=== PATIENT | male | born 1990 | race Caucasian/White ===

== ENCOUNTER 2019-03-09 11:33 | Outpatient (CLI) | payer OTHER ==
[2019-03-09 12:03] LABS: BASOPHILS % (AUTO) 0.6 % (0.0-2.0); EOSINOPHILS # (AUTO) 0.2 K/uL (0.0-0.4); EOSINOPHILS % (AUTO) 2.4 % (0.0-4.0); HEMATOCRIT 48.5 % (36-48); HEMOGLOBIN 16.6 g/dL (12.0-16.0); LYMPHOCYTES # (AUTO) 1.3 K/uL (1.0-5.5); LYMPHOCYTES % (AUTO) 21.1 % (20.5-51.5); MEAN CORPUSCULAR HEMOGLOBIN 32 pg (27-31); MEAN CORPUSCULAR HGB CONC 34 % (32-36); MEAN CORPUSCULAR VOLUME 94 fL (79.0-98.0); MONOCYTES # (AUTO) 0.6 K/uL (0.0-1.0); MONOCYTES % (AUTO) 9.3 % (1.7-9.3); NEUTROPHILS # (AUTO) 4.2 K/uL (1.8-7.7); NEUTROPHILS % (AUTO) 66.6 % (40.0-70.0); PLATELET COUNT (AUTO) 270 K/uL (130-430); RED BLOOD CELL COUNT(AUTO) 5.15 MIL/uL (4.2-6.2); WHITE BLOOD COUNT (AUTO) 6.4 K/uL (4.8-10.8)
[2019-03-09 12:18] LABS: ALBUMIN 4.3 g/dL (3.4-4.8); CALCIUM 9.3 mg/dL (8.4-11.0); CREATININE 1.05 mg/dL (0.55-1.30); POTASSIUM 4.1 mmol/L (3.5-5.1)
== END 2019-03-09 20:40 | disposition home or self-care (01) ==
LOC: SLB 11:33 → EDSEX 11:33 → SLB 20:40
PROVIDERS: ATTEND General Practice
DX: G54.0 Brachial plexus disorders (principal); M62.838 Other muscle spasm
CPT/HCPCS: 36415; 80053; 80061; 85025

== ENCOUNTER → 2019-05-10 | Outpatient (CLI) | payer OTHER ==
[2019-05-10 11:26] LABS: BASOPHILS # (AUTO) 0.1 K/uL (0.0-0.2); BASOPHILS % (AUTO) 1.5 % (0.0-2.0); EOSINOPHILS # (AUTO) 0.3 K/uL (0.0-0.4); EOSINOPHILS % (AUTO) 4.1 % (0.0-4.0); HEMATOCRIT 49.3 % (36-54); LYMPHOCYTES # (AUTO) 2.3 K/uL (1.0-5.5); LYMPHOCYTES % (AUTO) 33.3 % (20.5-51.5); MEAN CORPUSCULAR HEMOGLOBIN 32 pg (27-31); MEAN CORPUSCULAR HGB CONC 35 % (32-36); MEAN CORPUSCULAR VOLUME 94 fL (79.0-98.0); MONOCYTES # (AUTO) 0.7 K/uL (0.0-1.0); MONOCYTES % (AUTO) 10.5 % (1.7-9.3); NEUTROPHILS # (AUTO) 3.5 K/uL (1.8-7.7); NEUTROPHILS % (AUTO) 50.6 % (40.0-70.0); PLATELET COUNT (AUTO) 251 K/uL (130-430); RED BLOOD CELL COUNT(AUTO) 5.26 MIL/uL (4.2-6.2); RED CELL DISTRIBUTION WIDTH 13.2 % (9.0-15.0); WHITE BLOOD COUNT (AUTO) 6.8 K/uL (4.8-10.8)
[2019-05-10 11:40] LABS: ALBUMIN 4.2 g/dL (3.4-4.8); CALCIUM 8.9 mg/dL (8.4-11.0); CREATININE 1.04 mg/dL (0.55-1.30); POTASSIUM 3.8 mmol/L (3.5-5.1); TOTAL BILIRUBIN 0.8 mg/dL (0.0-1.0)
== END | disposition home or self-care (01) ==
LOC: SLB 10:48
PROVIDERS: ATTEND General Practice
DX: G54.0 Brachial plexus disorders (principal); M62.838 Other muscle spasm
CPT/HCPCS: 36415; 80053; 80061; 85025

== ENCOUNTER 2019-06-23 11:25 | Outpatient (CLI) | payer OTHER ==
[2019-06-23 13:35] LABS: ALBUMIN 4.3 g/dL (3.4-4.8); BILIRUBIN,DIRECT 0.1 mg/dL (0.0-0.3)
[2019-06-23 13:55] LABS: TOTAL BILIRUBIN 0.7 mg/dL (0.0-1.0)
== END 2019-06-23 21:10 | disposition home or self-care (01) ==
LOC: SRD 11:25
PROVIDERS: ATTEND General Practice
DX: B35.1 Tinea unguium (principal); M54.9 Dorsalgia, unspecified
CPT/HCPCS: 36415; 72072-TC; 80076

== ENCOUNTER 2019-12-03 12:37 | Outpatient (CLI) | payer OTHER ==
[2019-12-03 13:51] LABS: ALBUMIN 4.4 g/dL (3.4-4.8); BILIRUBIN,DIRECT 0.1 mg/dL (0.0-0.3); TOTAL BILIRUBIN 0.9 mg/dL (0.0-1.0)
== END 2019-12-03 17:27 | disposition home or self-care (01) ==
LOC: SLB 12:37
PROVIDERS: ATTEND Pathology Anatomic Pathology & Clinical Pathology
DX: Z00.00 Encounter for general adult medical examination without abnormal findings (principal)
CPT/HCPCS: 36415; 80076

== ENCOUNTER 2020-03-14 11:17 | Outpatient (CLI) | payer OTHER ==
[2020-03-14 12:04] LABS: ALBUMIN 4.1 g/dL (3.4-4.8); BILIRUBIN,DIRECT 0.2 mg/dL (0.0-0.3); TOTAL BILIRUBIN 0.9 mg/dL (0.0-1.0)
== END 2020-03-14 21:07 | disposition home or self-care (01) ==
LOC: SLB 11:17
PROVIDERS: ATTEND Pathology Anatomic Pathology & Clinical Pathology
DX: B35.1 Tinea unguium (principal)
CPT/HCPCS: 36415; 80076

== ENCOUNTER 2020-10-16 09:01 | Outpatient (CLI) | payer OTHER | END 2020-10-16 20:31 | disposition home or self-care (01) | LOC: SMI 09:01 | PROVIDERS: ATTEND General Practice | DX: M51.27 Other intervertebral disc displacement, lumbosacral region (principal); M51.36 Other intervertebral disc degeneration, lumbar region | CPT/HCPCS: 72148 ==

== ENCOUNTER 2022-03-11 05:18 | Emergency (ER) | payer OTHER ==
[~2022-03-11] VITALS: Ht 180.3 cm; Wt 86.2 kg
[2022-03-11 05:33] VITALS: BP_SYST 122
--- NOTE | 2022-03-11 05:35 | NUR ---
Pt from home with c/o headache for 3 days, nausea, stiff neck and dizziness. Pt states he took 1gm of tylenol at 03/10 2000. Pt ambulatory and following commands.
--- NOTE | 2022-03-11 05:40 | NUR ---
Patient to ER bed 02 to gown for evaluation. Side rails up. Report given to Rachel HANSON.
[2022-03-11] MEDS ORDERED: ONDANSETRON HCL 4 MG/2 ML VIAL IVP ONE (05:45)
[2022-03-11] MEDS ORDERED: NACL 0.9% 1,000 ML IV ONE (05:45)
[2022-03-11] MEDS ORDERED: DIPHENHYDRAMINE INJ 50 MG/ML VIAL IVP ONE (05:45)
[2022-03-11 06:28] LABS: HEMATOCRIT 45.4 % (36-54); MEAN CORPUSCULAR VOLUME 91 fL (79.0-98.0); PLATELET COUNT (AUTO) 274 K/uL (130-430); RED BLOOD CELL COUNT(AUTO) 4.98 MIL/uL (4.2-6.2); RED CELL DISTRIBUTION WIDTH 13.6 % (9.0-15.0); WHITE BLOOD COUNT (AUTO) 11.2 K/uL (4.8-10.8)
--- NOTE | 2022-03-11 06:30 | NUR ---
in to see patient
[2022-03-11 06:38] LABS: CALCIUM 9.4 mg/dL (8.4-11.0); POTASSIUM 3.8 mmol/L (3.5-5.1)
[2022-03-11] MEDS ORDERED: cefTRIAXone 2 GM VIAL ONE (06:41)
[2022-03-11 06:44] LABS: ALBUMIN 4.2 g/dL (3.4-4.8); TOTAL BILIRUBIN 1.2 mg/dL (0.0-1.0)
[2022-03-11 07:26] LABS: ATYPICAL LYMPHOCYTES % 7 % (0-0); BAND % (MANUAL) 2 % (0-6); EOSINOPHILS % (MANUAL) 1 % (0-7); LYMPHOCYTES % (MANUAL) 10 % (20-46); MONOCYTES % (MANUAL) 2 % (0-11)
[2022-03-11 07:27] LABS: BASOPHILS % (MANUAL) 0 % (0-2)
--- NOTE | 2022-03-11 07:30 | NUR ---
RECEIVED PT FROM MARGIE SHAW. PT HAS C/O OFF NECK PAIN AND H/A. PT IS AAOX4, NORMAL S1S2. RESP E/U. ON R/A. C/O MILD NAUSEA. ABDOMEN SOFT, NONTENDER, NONDISTENDED. BOWEL SOUNDS ACTIVE X4. DENIES CONSTIPATION. DISTAL PULSES NORMAL. SKIN CDI, WARM, NO EDEMA NOTED. SIDERAILS UP X2.
[2022-03-11] MEDS ORDERED: METOCLOPRAMIDE HCL 10 MG/2 ML VIAL IVP ONE (08:15)
[2022-03-11] MEDS ORDERED: MORPHINE 4 MG INJ. 4 MG/ML VIAL IVP ONE (08:15)
--- NOTE | 2022-03-11 08:15 | NUR ---
DR. KHAN AT BEDSIDE DISCUSSING POC.
--- NOTE | 2022-03-11 08:33 | NUR ---
PT GIVEN MORPHINE 4MG IVP FOR H/A 02/04.
[2022-03-11] MEDS ORDERED: HYDR-3917 PO (09:03)
[2022-03-11 09:15] VITALS: BP_SYST 121
--- NOTE | 2022-03-11 09:42 | NUR ---
Patient does not wish to proceed with medical care recommended by . Patient given information related to possible complications, up to and including , which could occur as a result of leaving hospital at this time. Patient verbalizes understanding of risks involved leaving against medical advice. Patient has signed AMA form.
== END 2022-03-11 09:42 | disposition left against medical advice (07) ==
LOC: SED 05:18
DX: R51.9 Headache, unspecified (principal); R42 Dizziness and giddiness; R11.0 Nausea; Z79.899 Other long term (current) drug therapy
CPT/HCPCS: 99284; 96365; 96375; 70450; 96361; 85027; 80053; 85007; 36415; 76376; J0696; J1200; J2765; J2405; J2270; J7030

== ENCOUNTER 2022-03-26 09:04 | Outpatient (CLI) | payer OTHER ==
[~2022-03-26 09:04] MED LIST: HYDR-3917 PO
[2022-03-26 10:08] LABS: CALCIUM 9.2 mg/dL (8.4-11.0); CREATININE 1.06 mg/dL (0.55-1.30); POTASSIUM 4.3 mmol/L (3.5-5.1)
[2022-03-26 10:34] LABS: BASOPHILS % (AUTO) 0.8 % (0.0-2.0); EOSINOPHILS # (AUTO) 0.2 K/uL (0.0-0.4); EOSINOPHILS % (AUTO) 3.9 % (0.0-4.0); HEMATOCRIT 46.3 % (36-54); LYMPHOCYTES # (AUTO) 1.4 K/uL (1.0-5.5); LYMPHOCYTES % (AUTO) 29.7 % (20.5-51.5); MEAN CORPUSCULAR VOLUME 93 fL (79.0-98.0); MONOCYTES # (AUTO) 0.4 K/uL (0.0-1.0); MONOCYTES % (AUTO) 9.4 % (1.7-9.3); NEUTROPHILS # (AUTO) 2.6 K/uL (1.8-7.7); NEUTROPHILS % (AUTO) 56.2 % (40.0-70.0); PLATELET COUNT (AUTO) 262 K/uL (130-430); RED BLOOD CELL COUNT(AUTO) 4.99 MIL/uL (4.2-6.2); RED CELL DISTRIBUTION WIDTH 13.6 % (9.0-15.0); WHITE BLOOD COUNT (AUTO) 4.7 K/uL (4.8-10.8)
[2022-03-27 04:06] LABS: HEMOGLOBIN A1C 5.3 % (4.8-5.6)
[2022-03-27 11:07] LABS: HEPATITIS C VIRUS AB <0.1 s/co ratio (0.0-0.9)
== END 2022-03-26 20:50 | disposition home or self-care (01) ==
LOC: SLB 09:04
DX: Z00.00 Encounter for general adult medical examination without abnormal findings (principal)
CPT/HCPCS: 36415; 80053; 80061; 83036; 85025; 86592; 86803; 87491

== ENCOUNTER 2022-04-10 08:37 | Outpatient (CLI) | payer OTHER ==
[2022-04-10 09:19] LABS: BASOPHILS % (AUTO) 0.8 % (0.0-2.0); EOSINOPHILS # (AUTO) 0.2 K/uL (0.0-0.4); EOSINOPHILS % (AUTO) 4.2 % (0.0-4.0); HEMATOCRIT 44.5 % (36-54); HEMOGLOBIN 15.6 g/dL (14.0-18.0); LYMPHOCYTES % (AUTO) 35.7 % (20.5-51.5); MEAN CORPUSCULAR HEMOGLOBIN 32 pg (27-31); MEAN CORPUSCULAR HGB CONC 35 % (32-36); MEAN CORPUSCULAR VOLUME 92 fL (79.0-98.0); MONOCYTES # (AUTO) 0.5 K/uL (0.0-1.0); NEUTROPHILS # (AUTO) 2.7 K/uL (1.8-7.7); NEUTROPHILS % (AUTO) 50.3 % (40.0-70.0); PLATELET COUNT (AUTO) 223 K/uL (130-430); RED BLOOD CELL COUNT(AUTO) 4.87 MIL/uL (4.2-6.2); RED CELL DISTRIBUTION WIDTH 13.5 % (9.0-15.0); WHITE BLOOD COUNT (AUTO) 5.5 K/uL (4.8-10.8)
[2022-04-10 18:03] LABS: ALBUMIN 4.1 g/dL (3.4-4.8); CALCIUM 8.9 mg/dL (8.4-11.0); CREATININE 1.06 mg/dL (0.55-1.30); POTASSIUM 3.7 mmol/L (3.5-5.1); TOTAL BILIRUBIN 0.8 mg/dL (0.0-1.0)
== END 2022-04-10 18:12 | disposition home or self-care (01) ==
LOC: SLB 08:37
PROVIDERS: ATTEND Student in an Organized Health Care Education/Training Program
DX: Z00.00 Encounter for general adult medical examination without abnormal findings (principal)
CPT/HCPCS: 36415; 80053; 80061; 83036; 85025; 87491